=== PATIENT | female | born 1960 | race African-American/Black ===

== ENCOUNTER → 2016-09-19 | Outpatient (CLI) | payer OTHER ==
[~2016-09-19] MED LIST: ACETAMINOPHEN PO; AMOXICILLIN PO; ASPIRINEC PO; BACTRIM DS TABL1 TA1 PO; COREG PO; GABAPENTIN300 M2 PO; IBUPROFEN800 MG PO; NORVASC PO; PHENERGAN PO; VICODIN PO
--- NOTE | ~2016-09-19 | US128 ---
[id number] [facility] [address] [place], [place] [address] [id number] O MR#: [id number] Acc #: [id number] NAME: SOLOMON DIANE : 1960 SEX: F STUDY DATE/TIME: 09/19/2016 14:35 UNIT: CGUS ROOM: STUDY DESCRIPTION: Thyroid Attending Physician: Rachel Kruger A.P.R.N. Referring Physician: Rachel Kruger A.P.R.N. Ordering Physician: Rachel Kruger A.P.R.N. Primary Care Physician: Rachel Kruger A.P.R.N. MEDICAL IMAGING REPORT This report is preliminary unless electronic signature is present EXAM Thyroid ultrasound, 09/19/2016. HISTORY Enlarged thyroid on physical examination 09/12/2016. Nontoxic thyroid goiter. Difficulty swallowing for several years. FINDINGS There is no prior exam for comparison. The right thyroid lobe measured 5.2 cm x 1.7 cm x 1.8 cm, while the left lobe measured 4.2 cm x 1.4 cm x 1.5 cm. The isthmus measured 5 mm in the AP direction. There is a 6 mm nodule in the upper pole of the left lobe and there is a 9 mm nodule in the lower pole of the left lobe. Both nodules are solid. The thyroid is mildly heterogeneous in echotexture but no additional cystic or solid nodules were seen. There are no masses extrinsic to the thyroid. Normal blood flow is seen throughout both thyroid lobes. IMPRESSION 1. Mild diffuse enlargement of the right thyroid lobe. 2. 2 subcentimeter nodules left thyroid lobe. Dictated by... Kwame Carmona M.D. THIS IS AN ELECTRONICALLY VERIFIED REPORT Kwame Carmona M.D. at 09/21/2016 9:33 AM KAPIL/maikel TD: 09/20/2016 09:28 JOB #: [id number] MEDICAL IMAGING REPORT Page 1 of 1 COPY
== END | disposition home or self-care (01) ==
LOC: CGUS 14:08
DX: E04.9 Nontoxic goiter, unspecified (principal); E04.2 Nontoxic multinodular goiter
CPT/HCPCS: 76536

== ENCOUNTER 2016-12-09 08:43 | Emergency (ER) | payer OTHER ==
--- NOTE | ~2016-12-09 | CR63 ---
[facility] A Service of [facility] & [facility] RADIOLOGY TEXT RESULTS PATIENT: SOLOMON DIANE LOCATION: [facility] : 62 UNIT #: [id number] AGE: [address]: Dhaval Amos MD SEX: F ORDER DR: [id number] [facility] [address] [place], [place] [address] [id number] E MR#: [id number] Acc #: [id number] NAME: SOLOMON DIANE. : 1960 SEX: F STUDY DATE/TIME: 12/09/2016 10:16 UNIT: [facility] ROOM: STUDY DESCRIPTION: CR Chest 2 View Attending Physician: Dhaval Amos M.D. Ordering Physician: Dhaval Amso M.D. Primary Care Physician: Primary Care Physician No MEDICAL IMAGING REPORT This report is preliminary unless electronic signature is present EXAM Two-view chest 12/09/2016 INDICATIONS A 56-year-old female with shortness of air congestion and right lower chest pain for 8-9 days. No known injury. Tobacco abuse 30 years. TECHNIQUE Two-view chest compared with 03/07/2016. FINDINGS Cardiac silhouette within normal limits. The vascularity is normal. Lungs are clear. There is old healed granulomatous disease. Probable chronic pleural reaction in the left CP angle unchanged. No pneumothorax. IMPRESSION Pulmonary hyperinflation but the lungs are clear. There is old healed granulomatous disease. Chronic pleural reaction left CP angle. Dictated by... Esequiel Núñez M.D. THIS IS AN ELECTRONICALLY VERIFIED REPORT Esequiel Núñez M.D. at 12/10/2016 11:07 AM Sofie TD: 12/09/2016 16:59 JOB #: [id number] MEDICAL IMAGING REPORT Page 1 of 1 COPY
[~2016-12-09 08:43] MED LIST changes: -GABAPENTIN300 M2 PO; -NORVASC PO
[2017-02-14] MEDS ORDERED: GABAPENTIN300 M2 PO (15:27)
[2017-02-14] MEDS ORDERED: NORVASC PO (15:28)
== END 2016-12-09 12:55 | disposition home or self-care (01) ==
LOC: CED 08:43
DX: J40 Bronchitis, not specified as acute or chronic (principal); I10 Essential (primary) hypertension; J44.9 Chronic obstructive pulmonary disease, unspecified
CPT/HCPCS: 71020; 87651; 99283

== ENCOUNTER → 2017-02-22 | Day surgery (SDC) | payer OTHER ==
[~2017-02-22] MED LIST changes: +GABAPENTIN300 M2 PO; +NORVASC PO
--- NOTE | ~2017-02-22 | OR ---
Unit #: [id number] #: [id number] Patient: SOLOMON DIANE [id number] [address] [address] [id number] O MR#: [id number] NAME: SOLOMON DIANE ROOM: Date of Procedure: 02/22/2017 Admission Date: 02/22/2017 Surgeon: Rahul Mallory M.D. : 1960 Attending Physician: Rahul Mallory M.D. Referring Physician: Rahul Mallory M.D. Primary Care Physician: Angela Roblero Aprn OPERATIVE REPORT PREOPERATIVE DIAGNOSIS Screening colonoscopy. POSTOPERATIVE DIAGNOSIS Screening colonoscopy. PROCEDURE PERFORMED 1. Colonoscopy to cecum. 2. Polypectomy at 60 cm with electrocautery snare. ANESTHESIA Monitored anesthesia care. FINDINGS The patient had normal colon except for a small 4 mm polyp at 60 cm, it was excised completely with good hemostasis. SPECIMENS Sent to pathology. COMPLICATIONS None apparent. CONDITION The patient tolerated the procedure well. INDICATIONS FOR PROCEDURE The patient is a 56-year-old black female, who presents at this time for screening colonoscopy. DESCRIPTION OF PROCEDURE After obtaining informed consent, the patient was brought to the endoscopy suite and after adequate monitored anesthesia care, had the colonoscope placed through the anus and slowly advanced to the level of the cecum without difficulty and with the lumen always in view. The cecum was normal as was the ileocecal valve. The ascending colon was normal as was the hepatic flexure, transverse colon, splenic flexure, and proximal descending colon. At 60 cm a small polyp was found. It was approximately 4 mm. It was excised completely with electrocautery snare, retrieved with a mucus trap, and sent to pathology. There was good hemostasis. The remaining portion of the descending colon, sigmoid colon, and rectum were normal. No diverticula were seen. On retroflexing in the rectum to the Unit #: [id number] #: [id number] Patient: SOLOMON DIANE anorectal junction, there was no abnormality seen. The scope was removed without difficulty. The patient tolerated the procedure well and went from the endoscopy suite to the recovery area in stable condition. RECOMMENDATIONS High-fiber diet, lots of liquids, tucks or wipes p.r.n. Follow up as needed. Call Saturday for pathology. Dictated by... Truman Richardson/aki TD: 02/22/2017 11:17 JOB #: [id number] CC: [facility] [place] [facility] OPERATIVE REPORT Page 1 of 1 X Rahul Mallory MD X PROCEDURE OPERATIVE NOTE
== END | disposition home or self-care (01) ==
LOC: COPS 05:40
DX: Z12.11 Encounter for screening for malignant neoplasm of colon (principal); D12.4 Benign neoplasm of descending colon; I10 Essential (primary) hypertension; J44.9 Chronic obstructive pulmonary disease, unspecified; F17.200 Nicotine dependence, unspecified, uncomplicated; M54.9 Dorsalgia, unspecified; Z79.899 Other long term (current) drug therapy; F32.9 Major depressive disorder, single episode, unspecified; J30.9 Allergic rhinitis, unspecified; Z82.49 Family history of ischemic heart disease and other diseases of the circulatory system; Z81.1 Family history of alcohol abuse and dependence; Z83.6 Family history of other diseases of the respiratory system; Z80.3 Family history of malignant neoplasm of breast; Z80.8 Family history of malignant neoplasm of other organs or systems; Z98.890 Other specified postprocedural states
CPT/HCPCS: 88305; J2250